=== PATIENT | female | born 1935 | race Caucasian/White ===

== ENCOUNTER 2017-05-27 12:25 | Inpatient (IN) | payer MEDICARE, OTHER ==
[~2017-05-27] VITALS: Ht 160 cm; Wt 63.5 kg
[2017-05-27] MEDS ORDERED: VALSARTAN (12:43)
[2017-05-27] MEDS ORDERED: PANTOPRAZOLE (12:43)
--- NOTE | 2017-05-27 12:47 | NUR ---
PT IS IN ROOM #2B. DR GIBSON EVALUATED THE PT.
[2017-05-27 13:30] LABS: BASOPHILS # (AUTO) 0.1 K/uL (0.0-8.0); BASOPHILS % (AUTO) 1.4 % (0.0-2.0); EOSINOPHILS # (AUTO) 0.1 K/uL (0.0-0.7); EOSINOPHILS % (AUTO) 1.4 % (0.0-7.0); HEMATOCRIT 28.4 % (31.2-41.9); HEMOGLOBIN 9.9 g/dL (10.9-14.3); LYMPHOCYTES # (AUTO) 1.4 K/uL (20.0-40.0); LYMPHOCYTES % (AUTO) 20.3 % (20.5-51.5); MEAN CORPUSCULAR HEMOGLOBIN 35.6 uug (24.7-32.8); MEAN CORPUSCULAR HGB CONC 35 g/dL (32.3-35.6); MEAN CORPUSCULAR VOLUME 102.6 fL (75.5-95.3); MONOCYTES # (AUTO) 0.3 K/uL (2.0-10.0); MONOCYTES % (AUTO) 4.9 % (0.0-11.0); NEUTROPHILS # (AUTO) 4.9 K/uL (1.8-8.9); PLATELET COUNT (AUTO) 267 K/uL (179-408); RED BLOOD CELL COUNT(AUTO) 2.77 MIL/uL (3.63-4.92); WHITE BLOOD COUNT (AUTO) 6.8 K/uL (3.8-11.8)
[2017-05-27 13:34] LABS: CARBON DIOXIDE 27 mmol/L (21-32); CHLORIDE 105 mmol/L (98-107); CREATININE 0.7 mg/dL (0.6-1.3); ETHANOL < 3 MG/DL (0-0); GLUCOSE 108 mg/dL (74-106); POTASSIUM 2.9 mmol/L (3.5-5.1); UREA NITROGEN, BLOOD 11 mg/dL (7-18)
[2017-05-27 13:49] LABS: ALANINE AMINOTRANSFERASE 19 U/L (14-59); ALKALINE PHOSPHATASE 40 U/L (50-136); ASPARTATE AMINOTRANSFERASE 16 U/L (15-37); BILIRUBIN,DIRECT 0.1 mg/dL (0.0-0.2); BILIRUBIN,TOTAL 0.7 mg/dL (0.2-1.0); TOTAL PROTEIN, SERUM 6.9 g/dL (6.4-8.2)
[2017-05-27 13:50] LABS: ACETAMINOPHEN < 2.0 ug/mL (10-30)
[2017-05-27 14:08] LABS: THYROID STIMULATING HORMONE 1.747 mIU/mL (0.358-3.740)
[2017-05-27 17:06] LABS: *BILIRUBIN,URIN NEGATIVE (NEGATIVE); *BLOOD, URINE NEGATIVE (NEGATIVE); *CLARITY,URINE CLEAR (CLEAR); *COLOR,URINE YELLOW (YELLOW); *KETONES,URINE NEGATIVE (NEGATIVE); *PROTEIN,URINE NEGATIVE (NEGATIVE); *UROBILINOGEN,URINE 0.2 E.U./dl (NORMAL); LEUKOCYTE ESTERASE ,URINE NEGATIVE (NEGATIVE); NITRITE, URINE NEGATIVE (NEGATIVE); UGLUCOSE NEGATIVE (NEGATIVE)
[2017-05-27 17:17] LABS: *AMPHETAMINE, URINE NEGATIVE (NEGATIVE); *BARBITURATE, URINE NEGATIVE (NEGATIVE); *CANNABINOID, URINE NEGATIVE (NEGATIVE); *COCCAINE, URINE NEGATIVE (NEGATIVE); *OPIATE, URINE NEGATIVE (NEGATIVE); *PHENCYCLIDINE SCREEN,URINE NEGATIVE (NEGATIVE)
[2017-05-27 17:30] LABS: MUCUS,URINE FEW /LPF (0-FEW); SQUAMOUS EPITHELIAL CELL,UR MODERATE /HPF (NONE SEEN); TRANSITIONAL EPI CELLS,URINE FEW /LPF (NONE SEEN)
--- NOTE | 2017-05-27 18:41 | NUR ---
PT WAS TRANSFERED TO ROOM #214. REPORT WAS GIVEN TO JOINT SUPERVISOR.
[2017-05-27 18:55] VITALS: BP 156/69
--- NOTE | 2017-05-27 19:30 | NUR ---
NSG: Pt received still lethargic, arousable, but falls right back to sleep. tele, SR. v/s stable. cont to monitor. waiting for md admitting orders.
[2017-05-27 20:00] VITALS: BP 127/67
[2017-05-27] MEDS ORDERED: ACETAMINOPHEN 325 MG TABLET PO PRN (21:00)
[2017-05-27] MEDS ORDERED: ZOLPIDEM 5 MG TABLET PO PRN (21:00)
[2017-05-27] MEDS ORDERED: HYDROCODONE/APAP 5-325MG TABLET PO PRN (21:00)
[2017-05-27] MEDS ORDERED: MAGNESIUM HYDROXIDE 30 ML LIQUID UDC PO PRN (21:00)
[2017-05-27] MEDS ORDERED: DEXTROSE 50% 50 ML DISP.SYRIN IV PRN (21:00)
[2017-05-27] MEDS ORDERED: IV NS 1000 ML 1,000 ML IV PRN (21:00)
[2017-05-27] MEDS ORDERED: ONDANSETRON 4 MG/2 ML VIAL IV PRN (21:00)
[2017-05-27] MEDS ORDERED: POTASSIUM CHLORIDE 50 ML IV SCH (21:00)
--- NOTE | 2017-05-27 21:20 | NUR ---
nsg: pt fully awake now. upset bec she is admitted to the hospital. explained to patient reason for admission. restarted new hl, started on ns at 75ml. also, started infusing potassium iv. tele, SR. cont to monitor.
[2017-05-27] MEDS: POTASSIUM CHLORIDE 10 MEQ in IV DEXTROSE 5% 50 ML IV SCH ×3 (21:30→23:47)
[2017-05-27] MEDS: BLOOD SUGAR DIAGNOSTIC 1 EACH STRIP VI SCH (22:15)
[2017-05-28] VITALS: BP 127/63
--- NOTE | 2017-05-28 00:18 | NUR ---
nsg: pt is fully awake, now, started eating. last acu check at past 2100 is 111mg/dL.
[2017-05-28] MEDS: POTASSIUM CHLORIDE 10 MEQ in IV DEXTROSE 5% 50 ML IV SCH (00:49)
--- NOTE | 2017-05-28 04:46 | NUR ---
NSG: Pt wants to leave AMA. wants iv infusion to be stopped.
[2017-05-28 05:00] VITALS: BP 153/72
--- NOTE | 2017-05-28 05:10 | NUR ---
nsg: pt refused to wear tele monitor. also, demanded heplock to be removed.
[2017-05-28] MEDS: BLOOD SUGAR DIAGNOSTIC 1 EACH STRIP VI SCH ×2 (06:00)
--- NOTE | 2017-05-28 06:00 | NUR ---
nsg: pt refused acu check, stated she's not diabetic.
[2017-05-28 06:13] LABS: BASOPHILS # (AUTO) 0.1 K/uL (0.0-8.0); EOSINOPHILS # (AUTO) 0.1 K/uL (0.0-0.7); EOSINOPHILS % (AUTO) 1.6 % (0.0-7.0); HEMATOCRIT 31.7 % (31.2-41.9); LYMPHOCYTES # (AUTO) 2.2 K/uL (20.0-40.0); LYMPHOCYTES % (AUTO) 31.5 % (20.5-51.5); MEAN CORPUSCULAR HEMOGLOBIN 35.4 uug (24.7-32.8); MEAN CORPUSCULAR HGB CONC 35 g/dL (32.3-35.6); MONOCYTES # (AUTO) 0.4 K/uL (2.0-10.0); NEUTROPHILS # (AUTO) 4.2 K/uL (1.8-8.9); NEUTROPHILS % (AUTO) 59.9 % (38.5-71.5); PLATELET COUNT (AUTO) 339 K/uL (179-408); RED BLOOD CELL COUNT(AUTO) 3.11 MIL/uL (3.63-4.92); WHITE BLOOD COUNT (AUTO) 7.1 K/uL (3.8-11.8)
[2017-05-28 06:16] LABS: CARBON DIOXIDE 27 mmol/L (21-32); CHLORIDE 105 mmol/L (98-107); CHOLESTEROL 169 mg/dL (<200); CREATININE 0.7 mg/dL (0.6-1.3); GLUCOSE 110 mg/dL (74-106); HDL CHOLESTEROL 51 mg/dL (40-60); MAGNESIUM 1.4 mg/dL (1.8-2.4); PHOSPHOROUS 2.8 mg/dL (2.5-4.9); POTASSIUM 3.7 mmol/L (3.5-5.1); TRIGLYCERIDES 66 MG/DL (30-150); UREA NITROGEN, BLOOD 8 mg/dL (7-18)
[2017-05-28 06:17] LABS: IRON, SERUM 117 ug/dL (50-175)
--- NOTE | 2017-05-28 07:30 | NUR ---
Patient is on tele status but patient refused to have her tele monitor on. Patient has no IV access, refused to have IV inserted. Patient wants to leave, stated "I have no reason to be here in the hospital".
--- NOTE | 2017-05-28 07:30 | NUR ---
Received report from night RN. Patient is alert, in no distress, ambulatory with a cane. Patient is agitated, anxious to leave the hospital because she is worried about her sick cat and her car parked down the street and might be towed. Patient has been wanting to speak to an MD. Attempted to provide explanations regarding waiting for the MD, leaving against medical advice.
--- NOTE | 2017-05-28 08:15 | NUR ---
Patient agreed to wait for MD to arrive. Addendum: 05/28/17 at 1056 by SHELTON BAZZI RN MD notified regarding patient's intention to leave the hospital. Patient prefers to wait for the MD and does not want to be on a AMA status.
--- NOTE | 2017-05-28 09:30 | NUR ---
Sheela spoke with patient. Per WELFARE INTERVIEWER, patient can leave the hospital, discharge paperwork to be mailed to the patient as patient does not want to wait.
--- NOTE | 2017-05-28 09:47 | NUR ---
Patient left the unit, in no distress, ambulatory. Will process discharge paperwork per GERTRUDE Coker's order.
--- NOTE | 2017-05-28 11:50 | NUR ---
Called patient on her phone to confirm/verify home mailing address. Mailing information and discharge packet endorsed to the nursing office.
== END 2017-05-28 09:45 | disposition home or self-care (01) | DRG 917 ==
LOC: ER 12:25 → TELE 18:12
PROVIDERS: ADMIT Nurse Practitioner Acute Care; ATTEND Nurse Practitioner Acute Care
DX: T42.4X1A Poisoning by benzodiazepines, accidental (unintentional), initial encounter (principal); G92 Toxic encephalopathy; Y92.009 Unspecified place in unspecified non-institutional (private) residence as the place of occurrence of the external cause; E87.6 Hypokalemia; D50.9 Iron deficiency anemia, unspecified; K21.9 Gastro-esophageal reflux disease without esophagitis; I10 Essential (primary) hypertension; Z96.641 Presence of right artificial hip joint; M48.02 Spinal stenosis, cervical region; M25.78 Osteophyte, vertebrae; J32.9 Chronic sinusitis, unspecified; I67.2 Cerebral atherosclerosis
CPT/HCPCS: 36415; 70030-TC; 70450; 71045; 72125; 80307; 83550; 83605; 83735; 84100; 84443; 85025; 85730; 87040; 87086; 93005; A4663; G0480; G0480-TC; J3480; J7030; J7060